=== PATIENT | female | born 1990 | race American Indian/Alaskan Native ===

== ENCOUNTER 2018-11-04 17:31 | Emergency (ER) | payer MEDICAID ==
[2018-11-04 18:09] VITALS: BP 125/65
[2018-11-04] MEDS ORDERED: ZITHROMAX PO ONE (18:10)
[2018-11-04] MEDS ORDERED: XYLOCAINE 1% MPF 5 mL INFILTRATI ONE (18:10)
[2018-11-04] MEDS ORDERED: ROCEPHIN IM ONE (18:10)
--- NOTE | 2018-11-04 18:10 | Emergency Department Report ---
Blank Doc - Documentation Documentation: 27 y o female present cc of getting treated for chlamydia states partner told her he has chlamydia. , states 7 weeks . PLAN: rochephin, azithromycin 1 g followed by [facility]
[2018-11-04] MEDS ORDERED: ZOFRAN ODT PO ONE (18:26)
--- NOTE | 2018-11-04 19:30 | Emergency Department Report ---
ED Female HPI - General Chief complaint: Urogenital-Female Stated complaint: STD CHECK Time Seen by Provider: 11/04/18 18:06 Source: patient Mode of arrival: Ambulatory Limitations: No Limitations - History of Present Illness Initial comments: 27 y o female present to emergency room and states partner told her he has chlamydia., states 7 weeks . She denies any vaginal discharge. She is here to be treated. Patient denies any back pain or abdominal pain. She denies any urinary frequency urgency or burning. Denies any nausea vomiting or diarrhea. Denies any vaginal bleeding. MD Complaint: possible STD Onset/Timin -: days(s) Severity scale (0 -10): 0 Are you Now?: Yes (7 weeks) Associated Symptoms: other (STD contact). denies: vaginal discharge, vaginal bleeding, abdominal pain, nausea/vomiting, fever/chills, headaches, loss of appetite, dysuria, hematuria, rash, seizure, shortness of breath, syncope, weakness - Related Data Sexually active: Yes Home Medications Medication Instructions Recorded Confirmed Last Taken No Known Home Medications [No 05/24/15 05/24/15 Unknown Reported Home Medications] Allergies Allergy/AdvReac Type Severity Reaction Status Date / Time No Known Allergies Allergy Verified 05/22/15 00:25 ED Review of Systems ROS: Stated complaint: STD CHECK Other details as noted in HPI Constitutional: denies: chills, malaise ENT: denies: throat pain Respiratory: denies: cough, shortness of breath, wheezing Cardiovascular: denies: chest pain, palpitations, edema, syncope Gastrointestinal: denies: abdominal pain, nausea, vomiting, diarrhea, constipation Genitourinary: other (reports exposure to chlamydia). denies: urgency, dysuria, frequency, hematuria, discharge, dyspareunia Musculoskeletal: denies: back pain, joint swelling, arthralgia, myalgia Skin: denies: rash Neurological: denies: headache ED Past Medical Hx - Past Medical History Previous Medical History?: No Hx Hypertension: No Hx Congestive Heart Failure: No Hx Diabetes: No Hx Deep Vein Thrombosis: No Hx Renal Disease: No Hx Sickle Cell Disease: No Hx Seizures: No Hx Asthma: No Hx COPD: No Hx HIV: No - Surgical History Past Surgical History?: No - Family History Family history: no significant - Social History Smoking Status: Never Smoker Substance Use Type: None - Medications Home Medications: Home Medications Medication Instructions Recorded Confirmed Last Taken Type No Known Home Medications [No 05/24/15 05/24/15 Unknown History Reported Home Medications] ED Physical Exam - General Limitations: No Limitations General appearance: alert, in no apparent distress - Head Head exam: Present: atraumatic, normocephalic, normal inspection - Eye Eye exam: Present: normal appearance, PERRL - ENT ENT exam: Present: normal exam, normal orophraynx, mucous membranes moist - Neck Neck exam: Present: normal inspection, full ROM. Absent: tenderness, lymphadenopathy - Respiratory Respiratory exam: Present: normal lung sounds bilaterally. Absent: respiratory distress, chest wall tenderness - Cardiovascular Cardiovascular Exam: Present: regular rate, normal rhythm, normal heart sounds - GI/Abdominal GI/Abdominal exam: Present: soft, normal bowel sounds. Absent: distended, tenderness, guarding, rebound, rigid, organomegaly, mass - Extremities Exam Extremities exam: Present: normal inspection, full ROM, normal capillary refill, other (No cce. + 2 pulses in all extremities, no neurovascular compromise). Absent: tenderness, pedal edema, joint swelling, calf tenderness - Back Exam Back exam: Present: normal inspection, full ROM. Absent: tenderness, CVA tenderness (R), CVA tenderness (L) - Neurological Exam Neurological exam: Present: alert, oriented X3, normal gait - Psychiatric Psychiatric exam: Present: normal affect, normal mood - Skin Skin exam: Present: warm, dry, intact, normal color. Absent: rash ED Course Vital Signs 11/04/18 18:06 Temperature 98.9 F Pulse Rate 100 H Respiratory 16 Rate Blood Pressure 125/65 O2 Sat by Pulse 100 Oximetry - Reevaluation(s) Reevaluation #1: 11/04/18 19:34 Patient was treated for gonorrhea and chlamydia in emergency room. Patient was given and Rocephin 250 mg IM and azithromycin 1 g by mouth. She had no adverse reaction from medication. ED Medical Decision Making - Medical Decision Making This is a 27-year-old female well-nourished well-developed here to be treated for STD because she said her boyfriend was diagnosed with chlamydia and she 7 weeks and need to be treated. Patient was treated with azithromycin and Rocephin in emergency room. I encouraged her to practice safe sex and not to have any sexual activity. I told her that she needs to follow up with her [employer]ES [facility]NAGER or at the health department for retesting in 7-10 days. And she voiced understanding. I discussed the patient if she has abdominal pain, vaginal bleeding, back pain or urinary symptoms, fever and or chills to return to the emergency room NIC otherwise follow up with her [employer]NA[employer] doctor. Critical care attestation.: If time is entered above; I have spent that time in minutes in the direct care of this critically ill patient, excluding procedure time. ED Disposition Clinical Impression: Exposure to sexually transmitted disease (STD), Sexually transmitted infection during in first trimester Disposition: DC- TO HOME OR SELFCARE Is pt being admited?: No Does the pt Need Aspirin: No Condition: Stable Instructions: Safe Sex (ED), Sexually Transmitted Diseases (ED), Chlamydia Infection (ED) Additional Instructions: Please follow up with the [employer] RETAIL SALES MANAGER in 3 days regard and exposure to chlamydia and let them know the year treated in emergency room and he will need to have follow-up STD test then in 7-10 days. If you have abdominal pain, vaginal bleeding, back pain, nausea vomiting, urinary burning, frequency urgency or fever and no chills please return to emergency room NIC Increasing her fluid intake to at least 2-3 L of water daily Avoid having sexual activity over the next 2 weeks and make sure that your partner have repeat STD check in 7-10 days to make sure he does not have any STD. You were treated for gonorrhea and chlamydia in the emergency room today. Referrals: [facility] [Provider Group] - 11/07/18 your ,[employer] [Other] - 11/07/18 Forms: Work/School Release Form(ED)
== END 2018-11-04 20:00 | disposition home or self-care (01) ==
LOC: ED 17:31
DX: O98.811 Other maternal infectious and parasitic diseases complicating pregnancy, first trimester (principal); A64 Unspecified sexually transmitted disease; Z3A.01 Less than 8 weeks gestation of pregnancy
CPT/HCPCS: 96372; 99282; J0696; Q0162

== ENCOUNTER 2019-12-09 20:44 | Emergency (ER) | payer MEDICAID ==
[2019-12-09 21:39] LABS: Hematocrit 44.2 % (30.3-42.9); Hemoglobin 14.5 gm/dl (10.1-14.3); Mean Corpuscular HGB Conc 33 % (30-34); Mean Corpuscular Volume 86 fl (79-97); Platelet Count 223 K/mm3 (140-440); Red Blood Count 5.14 M/mm3 (3.65-5.03)
[2019-12-09 21:58] LABS: Alanine Aminotransferase 14 units/L (7-56); Albumin 4.6 g/dL (3.9-5); BUN/Creatinine Ratio 17; Blood Urea Nitrogen 12 mg/dL (7-17); Hemolysis Index 2
[2019-12-09 22:01] LABS: Bilirubin,Direct < 0.2 mg/dL (0-0.2)
[2019-12-09 22:37] LABS: Platelet Estimate Consistent w Auto; RBC Morphology Normal; Total Cells Counted 100
[2019-12-10 00:09] LABS: Bacteria,Urine 1+ /HPF (Negative); Bilirubin,Urine NEG (Negative); Blood,Urine LG (Negative); Color,Urine Yellow (Yellow); Mucus,Urine 3+ /HPF; Urobilinogen,Urine < 2.0 mg/dL (<2.0)
[2019-12-10 00:14] LABS: RBC,Urine 0.1 /HPF (0.0-6.0)
[2019-12-10] MEDS ORDERED: DICYCLOMINE 20 MG TAB PO ONE (01:04)
[2019-12-10] MEDS ORDERED: ONDANSETRON 4 MG ODT TAB PO ONE (01:04)
[2019-12-10] MEDS ORDERED: FAMOTIDINE 20 MG TAB PO ONE (01:04)
--- NOTE | 2019-12-10 01:48 | Emergency Department Report ---
ED Abdominal Pain HPI - General Chief Complaint: Abdominal Pain Stated Complaint: ABD PAIN,DIARRHEA,SWEATS Time Seen by Provider: 12/09/19 21:14 Source: patient Mode of arrival: Ambulatory Limitations: No Limitations - History of Present Illness Initial Comments: Patient is a A0 29-year-old -[place] female with no past medical history who presents to the ED with acute onset persistent epigastric pain with nausea and lack of appetite and diffuse body aches for the last 3 days. Patient states that no one else at home is had similar symptoms. Patient denies dizziness, fever, chills, vomiting, dysuria, urinary frequency and urgency, vagi nal discharge, vaginal bleeding, syncope, chest pain, shortness of breath, sore throat or nasal and sinus congestion and headache. MD Complaint: abdominal pain, other (nausea) -: Sudden, days(s) (3) Location: epigastric Radiation: none Migration to: no migration Severity: moderate Severity scale (0 -10): 4 Quality: cramping, aching Consistency: intermittent Improves With: nothing Worsens With: nothing Context: possible food poisoning Associated Symptoms: denies other symptoms, nausea, anorexia. denies: vomiting, diarrhea, fever, chills, dysuria, hematemesis, hematochezia, melena, hematuria, syncope - Related Data LMP Date: 12/08/19 Previous Rx's Medication Instructions Recorded Last Taken Type Ferrous Sulfate [Feosol 325 MG tab] 325 mg PO QDAY #30 tablet 06/19/19 Unknown Rx Dicyclomine [Bentyl] 20 mg PO Q6H PRN #30 tablet 12/10/19 Unknown Rx Famotidine [Pepcid] 20 mg PO Q12H #30 tablet 12/10/19 Unknown Rx Ondansetron [Zofran Odt] 4 mg PO Q6HR PRN #20 tab.rapdis 12/10/19 Unknown Rx Allergies Allergy/AdvReac Type Severity Reaction Status Date / Time No Known Allergies Allergy Verified 05/22/15 00:25 ED Review of Systems ROS: Stated complaint: ABD PAIN,DIARRHEA,SWEATS Other details as noted in HPI Constitutional: denies: chills, fever Eyes: denies: eye pain, eye discharge, vision change ENT: denies: ear pain, throat pain Respiratory: denies: cough, shortness of breath, wheezing Cardiovascular: denies: chest pain, palpitations Endocrine: no symptoms reported Gastrointestinal: abdominal pain, nausea, diarrhea Genitourinary: denies: urgency, dysuria, discharge Musculoskeletal: denies: back pain, joint swelling, arthralgia Skin: denies: rash, lesions Neurological: denies: headache, weakness, paresthesias Psychiatric: denies: anxiety, depression Hematological/Lymphatic: denies: easy bleeding, easy bruising ED Past Medical Hx - Past Medical History Previous Medical History?: Yes Hx Hypertension: No Hx Congestive Heart Failure: No Hx Diabetes: No Hx Deep Vein Thrombosis: No Hx Renal Disease: No Hx Sickle Cell Disease: No Hx Seizures: No Hx Asthma: No Hx COPD: No Hx HIV: No Additional medical history: Irregular heart beat. - Surgical History Past Surgical History?: No - Social History Smoking Status: Never Smoker Substance Use Type: None - Medications Home Medications: Home Medications Medication Instructions Recorded Confirmed Last Taken Type Ferrous Sulfate [Feosol 325 MG tab] 325 mg PO QDAY #30 tablet 06/19/19 Unknown Rx Dicyclomine [Bentyl] 20 mg PO Q6H PRN #30 tablet 12/10/19 Unknown Rx Famotidine [Pepcid] 20 mg PO Q12H #30 tablet 12/10/19 Unknown Rx Ondansetron [Zofran Odt] 4 mg PO Q6HR PRN #20 tab.rapdis 12/10/19 Unknown Rx ED Physical Exam - General Limitations: No Limitations General appearance: alert, in no apparent distress - Head Head exam: Present: atraumatic, normocephalic, normal inspection - Eye Eye exam: Present: normal appearance, PERRL, EOMI Pupils: Present: normal accommodation - ENT ENT exam: Present: normal exam, normal orophraynx, mucous membranes moist, TM's normal bilaterally, normal external ear exam - Neck Neck exam: Present: normal inspection, full ROM - Respiratory Respiratory exam: Present: normal lung sounds bilaterally. Absent: respiratory distress, wheezes, rales, chest wall tenderness, accessory muscle use, decreased breath sounds - Cardiovascular Cardiovascular Exam: Present: regular rate, normal rhythm, normal heart sounds. Absent: systolic murmur, diastolic murmur, rubs, gallop - GI/Abdominal GI/Abdominal exam: Present: soft, tenderness (Mild epigastric tenderness), normal bowel sounds. Absent: guarding, rebound, hyperactive bowel sounds - Extremities Exam Extremities exam: Present: normal inspection, full ROM, normal capillary refill - Back Exam Back exam: Present: normal inspection, full ROM. Absent: tenderness, CVA tenderness (L), muscle spasm, paraspinal tenderness - Neurological Exam Neurological exam: Present: alert, oriented X3, CN II-XII intact, normal gait, reflexes normal - Psychiatric Psychiatric exam: Present: normal affect, normal mood - Skin Skin exam: Present: warm, dry, intact, normal color. Absent: rash ED Course Vital Signs 12/09/19 12/09/19 21:01 21:13 Temperature 98.2 F 98.2 F Pulse Rate 91 H 85 Respiratory 18 18 Rate Blood Pressure 118/79 118/79 O2 Sat by Pulse 98 100 Oximetry ED Medical Decision Making - Lab Data Result diagrams: 12/09/19 21:18 12/09/19 21:18 - Medical Decision Making This is a 29-year-old female who presented to the ED with persistent epigastric pain, nausea and diarrhea with diffuse body aches and pains. In the ED, patient is alert and oriented x3 and is not in any distress with normal vital signs. Lab test results were reviewed and are all nonactionable including urinalysis. Patient was treated in the ED with antacids, antiemetics and pain medications. On reevaluation, patient's pain is well controlled with medications. Patient was discharged home on medications and advised to follow-up with her primary care physician in 5 to 7 days for reevaluation or return to the ED immediately if symptoms get worse. - Differential Diagnosis Gastritis; GERD; Viral gastroenteritis; UTI Critical care attestation.: If time is entered above; I have spent that time in minutes in the direct care of this critically ill patient, excluding procedure time. ED Disposition Clinical Impression: Viral gastroenteritis, Epigastric abdominal pain, Nausea and vomiting in adult GERD (gastroesophageal reflux disease) Qualifiers: Esophagitis presence: without esophagitis Qualified Code(s): K21.9 - Gastro- esophageal reflux disease without esophagitis Disposition: TO HOME OR SELFCARE Is pt being admited?: No Does the pt Need Aspirin: No Condition: Stable Instructions: Abdominal Pain (ED), Gastroesophageal Reflux Disease (ED), Acute Nausea and Vomiting (ED), Gastroenteritis (ED) Additional Instructions: Take medication as advised, drink plenty of fluids and follow-up with your primary care physician in 5 to 7 days for reevaluation. Return to the ED immediately if symptoms get worse. Prescriptions: Dicyclomine [Bentyl] 20 mg PO Q6H PRN #30 tablet PRN Reason: Pain , Severe (7-10) Famotidine [Pepcid] 20 mg PO Q12H #30 tablet Ondansetron [Zofran Odt] 4 mg PO Q6HR PRN #20 tab.rapdis PRN Reason: Nausea Referrals: [facility] [place] [Outside] - 3-5 Days Forms: Work/School Release Form(ED) Time of Disposition: 01:49 Print Language: PUERTO RICAN
[2019-12-10 01:58] VITALS: BP 116/83
== END 2019-12-10 01:58 | disposition home or self-care (01) ==
LOC: ED 20:44
DX: A08.4 Viral intestinal infection, unspecified (principal); K21.9 Gastro-esophageal reflux disease without esophagitis; R11.2 Nausea with vomiting, unspecified; R10.13 Epigastric pain; Z79.899 Other long term (current) drug therapy
CPT/HCPCS: 36415; 80048; 80076; 81001; 83690; 85007; 85025; 99283; Q0162

== ENCOUNTER 2021-04-23 03:46 | Observation (INO) | payer MEDICAID ==
--- NOTE | 2021-04-23 05:25 | Ultrasound Report ---
ULTRASOUND OBSTETRIC LIMITED ULTRASOUND BIOPHYSICAL PROFILE INDICATION / CLINICAL INFORMATION: BPP. COMPARISON: None available. FINDINGS: BREATHING MOVEMENT = 2 GROSS BODY MOVEMENT = 2 TONE = 2 QUALITATIVE AMNIOTIC FLUID VOLUME = 2 TOTAL BIOPHYSICAL SCORE = 8/8 AMNIOTIC FLUID INDEX (cm) = 11.0 PRESENTATION: Cephalic. HEART RATE (beats per minute): 143 ADDITIONAL FINDINGS: None. IMPRESSION: 1. Biophysical Score = 8/8 Signer Name: Darrell Perales MD Signed: 04/23/2021 5:20 AM Workstation Name: [id number]
[2021-04-23] MEDS ORDERED: LACTATED RINGERS 1,000 ML IV ONE (05:31)
[2021-04-23] MEDS ORDERED: CARBOPROST TROMETHAMINE 250 MCG/1 ML INJ IM PRN (06:20)
[2021-04-23] MEDS ORDERED: LOPERAMIDE 2 MG CAP PO PRN (06:20)
[2021-04-23] MEDS ORDERED: BUTORPHANOL 2 MG/1 ML INJ IV PRN ×2 (06:20)
[2021-04-23] MEDS ORDERED: METHYLERGONOVINE MALEATE 0.2 MG/ML VIAL IM PRN (06:20)
[2021-04-23] MEDS ORDERED: OXYTOCIN 10 UNIT/1 ML INJ IM PRN (06:20)
[2021-04-23] MEDS ORDERED: TERBUTALINE 1 MG/1 ML INJ SUB-Q PRN (06:20)
[2021-04-23] MEDS ORDERED: MINERAL OIL 30 ML ORAL LIQD PO PRN (06:20)
[2021-04-23] MEDS ORDERED: AMPICILLIN/NS 2 GM/100 ML 2 GM/100 ML BAG IV ONE (06:20)
[2021-04-23] MEDS ORDERED: miSOPROStol 200 MCG TAB PR PRN (06:20)
[2021-04-23] MEDS ORDERED: LIDOCAINE (2%) 20 MG/1 ML VIAL 20 ML MDV INFILTRATI ONE (06:20)
[2021-04-23] MEDS ORDERED: ePHEDrine SULFATE 50 MG/1 ML INJ IV PRN (06:20)
[2021-04-23] MEDS ORDERED: LACTATED RINGERS 1,000 ML IV SCH (06:30)
[2021-04-23 06:50] LABS: Basophils # (Auto) 0.1 K/mm3 (0.0-0.1); Basophils % (Auto) 0.6 % (0.0-1.8); Eosinophils # (Auto) 0.1 K/mm3 (0.0-0.4); Eosinophils % (Auto) 1.2 % (0.0-4.3); Hematocrit 35.6 % (30.3-42.9); Hemoglobin 11.8 gm/dl (10.1-14.3); Lymphocytes # (Auto) 1.8 K/mm3 (1.2-5.4); Lymphocytes % (Auto) 18.7 % (13.4-35.0); Mean Corpuscular HGB Conc 33 % (30-34); Mean Corpuscular Volume 87 fl (79-97); Monocytes # (Auto) 1.3 K/mm3 (0.0-0.8); Monocytes % (Auto) 13.4 % (0.0-7.3); Platelet Count 183 K/mm3 (140-440); Red Blood Count 4.08 M/mm3 (3.65-5.03); Red Cell Distribution Width 14.6 % (13.2-15.2)
[2021-04-23] MEDS ORDERED: OXYTOCIN DRIP 30 UNITS/500 ML BAG IV SCH ×2 (07:00)
[2021-04-23 09:02] VITALS: BP 132/61
== END 2021-04-23 10:30 | disposition home or self-care (01) ==
LOC: TRG 03:46 → APU 03:54 → TRG 05:30 → LD 05:30
DX: O62.9 Abnormality of forces of labor, unspecified (principal); Z3A.38 38 weeks gestation of pregnancy
CPT/HCPCS: 36415; 59025; 76819; 85025; 86592; 86850; 86900; 86901; 96365; G0378; J0290; J7120; 96360

== ENCOUNTER 2021-04-29 05:58 | Inpatient (IN) | payer MEDICAID ==
[2021-04-29] MEDS ORDERED: METHYLERGONOVINE MALEATE 0.2 MG/ML VIAL IM PRN (06:57)
[2021-04-29] MEDS ORDERED: OXYTOCIN 10 UNIT/1 ML INJ IM PRN (06:57)
[2021-04-29] MEDS ORDERED: LIDOCAINE (2%) 20 MG/1 ML VIAL 20 ML MDV INFILTRATI NR (06:57)
[2021-04-29] MEDS ORDERED: LOPERAMIDE 2 MG CAP PO PRN (06:57)
[2021-04-29] MEDS ORDERED: miSOPROStol 200 MCG TAB PR PRN (06:57)
[2021-04-29] MEDS ORDERED: AMPICILLIN/NS 2 GM/100 ML 2 GM/100 ML BAG IV ONE (06:57)
[2021-04-29] MEDS ORDERED: CARBOPROST TROMETHAMINE 250 MCG/1 ML INJ IM PRN (06:57)
[2021-04-29] MEDS ORDERED: ePHEDrine SULFATE 50 MG/1 ML INJ IV PRN ×2 (07:00→11:30)
[2021-04-29] MEDS ORDERED: TERBUTALINE 1 MG/1 ML INJ SUB-Q PRN (07:00)
[2021-04-29] MEDS ORDERED: NalbUPHINE 10 MG/1 ML INJ IV PRN (07:00)
[2021-04-29] MEDS ORDERED: OXYTOCIN DRIP 30 UNITS/500 ML BAG IV SCH ×3 (07:00→22:00)
[2021-04-29] MEDS ORDERED: fentaNYL 100 MCG/2 ML INJ IV PRN (07:00)
[2021-04-29] MEDS ORDERED: ACETAMINOPHEN 325 MG TAB PO PRN (07:00)
--- NOTE | 2021-04-29 07:22 | History and Physical Report ---
History of Present Illness Date of examination: 04/29/21 Date of admission: 04/29/21 Chief complaint: Leakage of fluid History of present illness: at 39.4wks by EDC 05/02/21 per pt report. Pt c/o [facility] at 4am today, denies vaginal bleeding or headache. pt admits to movement. care at [facility] and records not available however pt states she knows she was GBS+ and needs abx med. Pt also desires epidural. Past History Past Medical History: no pertinent history Past Surgical History: no surgical history LOAN REPRESENTATIVE History: herpes (no active lesions and last med for valtrex taken 04/28/21) Family/Genetic History: none Social history: no significant social history - Obstetrical History Expected Date of Delivery: 05/02/21 Actual Gestation: 39 Week(s) 4 Day(s) : 5 Hx # Term Pregnancies: 4 Number of Living Children: 4 Medications and Allergies Allergies Allergy/AdvReac Type Severity Reaction Status Date / Time No Known Allergies Allergy Verified 05/22/15 00:25 Home Medications Medication Instructions Recorded Confirmed Last Taken Type One Daily Tablet 1 tab PO DAILY 04/23/21 04/23/21 04/22/21 History Valtrex 1,000 mg PO DAILY 04/23/21 04/23/21 04/22/21 10:00 History Active Meds: Active Medications Acetaminophen (Acetaminophen 325 Mg Tab) 650 mg PO Q4H PRN PRN Reason: Pain, Mild (1-3) Carboprost Tromethamine (Carboprost Tromethamine 250 Mcg/1 Ml Inj) 250 mcg IM ONCE PRN PRN Reason: Uterine Bleeding Ephedrine Sulfate (Ephedrine Sulfate 50 Mg/1 Ml Inj) 10 mg IV Q2M PRN PRN Reason: Hypotension Fentanyl (Fentanyl 100 Mcg/2 Ml Inj) 100 mcg IV Q2H PRN PRN Reason: Pain,Severe (7-10) LABOR PAIN Oxytocin/Sodium Chloride (Pitocin/Ns 30 Unit/500ml) 30 units in 500 mls @ 2 mls/hr IV TITR ANNEMARIE; Protocol Lactated Ringer's (Lactated Ringers) 1,000 mls @ 125 mls/hr IV DIRECT ANNEMARIE Oxytocin/Sodium Chloride (Pitocin/Ns 30 Unit/500ml) 30 units in 500 mls @ 40 mls/hr IV TITR ANNEMARIE; Protocol Ampicillin Sodium (Ampicillin/Ns 2 Gm/100 Ml) 2 gm in 100 mls @ 100 mls/hr IV ONCE ONE; Protocol Stop: 04/29/21 07:56 Lidocaine (Lidocaine (2%) 20 Mg/1 Ml Vial 20 Ml Mdv) 20 ml INFILTRATI ONCE ONE Stop: 04/29/21 06:58 Loperamide HCl (Loperamide 2 Mg Cap) 2 mg PO ONCE PRN PRN Reason: give with Hemabate Methylergonovine Maleate (Methylergonovine Maleate 0.2 Mg/Ml Vial) 0.2 mg IM ONCE PRN PRN Reason: Uterine Bleeding Mineral Oil (Mineral Oil 30 Ml Oral Liqd) 30 ml PO QHS PRN PRN Reason: Constipation Misoprostol (Misoprostol 200 Mcg Tab) 800 mcg CA ONCE PRN PRN Reason: Uterine Bleeding Nalbuphine HCl (Nalbuphine 10 Mg/1 Ml Inj) 10 mg IV Q2H PRN PRN Reason: Pain, Moderate (4-6) Oxytocin (Oxytocin 10 Unit/1 Ml Inj) 10 unit IM ONCE PRN PRN Reason: Uterine Bleeding Terbutaline Sulfate (Terbutaline 1 Mg/1 Ml Inj) 0.25 mg SUB-Q ONCE PRN PRN Reason: Hyperstimulation/Hypertonicity Review of Systems All systems: negative (leakage of fluid) - Vital Signs Vital signs: Vital Signs Pulse BP 88 133/72 04/29/21 06:23 04/29/21 06:23 Temp Pulse Resp BP Pulse Ox 98.7 F 94 H 18 133/72 96 04/29/21 06:24 04/29/21 07:14 04/29/21 06:24 04/29/21 06:24 04/29/21 07:14 - Physical Exam Breasts: Positive: deferred Cardiovascular: Regular rate Lungs: Positive: Normal air movement Abdomen: Positive: normal appearance Genitourinary (Female): Positive: normal external genitalia Vulva: both: normal (no lesions) Vagina: Positive: normal moisture Uterus: Positive: normal size - Obstetrical Cervical Dilatation: 3 Cervical Effacement Percentage: 50 station: -3 Uterine Contraction Pattern: Irregular Results All other labs normal. Assessment and Plan Term with PROM, GBS+ per pt report and grossly ruptured 1. admit to labor and delivery and give Amp for GBS+ 2. augment with pitocin 3. May have epidural when desired Expect
[2021-04-29 08:04] LABS: Hematocrit 35.4 % (30.3-42.9); Mean Corpuscular HGB Conc 34 % (30-34); Mean Corpuscular Volume 87 fl (79-97); Platelet Count 166 K/mm3 (140-440); Red Blood Count 4.09 M/mm3 (3.65-5.03)
[2021-04-29] MEDS: valACYclovir 500 MG TAB PO SCH (08:15)
[2021-04-29] MEDS: LACTATED RINGERS 1,000 ML IV SCH ×3 (08:32→11:10)
--- NOTE | 2021-04-29 09:45 | Progress Note ---
Assessment and Plan A: IUP@ 39.4wks + GBS + HSV P: Continue monitoring Start Pitocin augmentation GBS protocal Epidural/pain med as desired Anticipate Subjective - Subjective Date of service: 04/29/21 Principal diagnosis: IUP@ 39.4wks with PROM Patient reports: movement normal Objective - Vital Signs Vital Signs: Vital Signs - 12hr 04/29/21 04/29/21 04/29/21 06:23 06:24 06:29 Temperature 98.7 F Pulse Rate 88 99 H 98 H Respiratory 18 Rate Blood Pressure 133/72 Blood Pressure 133/72 [Right] O2 Sat by Pulse 97 97 Oximetry O2 Sat by Pulse Oximetry [ Bilateral Throughout] 04/29/21 04/29/21 04/29/21 06:34 06:37 06:39 Temperature Pulse Rate 90 114 H 84 Respiratory Rate Blood Pressure Blood Pressure [Right] O2 Sat by Pulse 96 91 97 Oximetry O2 Sat by Pulse Oximetry [ Bilateral Throughout] 04/29/21 04/29/21 04/29/21 06:44 06:49 06:54 Temperature Pulse Rate 86 91 H 92 H Respiratory Rate Blood Pressure Blood Pressure [Right] O2 Sat by Pulse 96 97 97 Oximetry O2 Sat by Pulse Oximetry [ Bilateral Throughout] 04/29/21 04/29/21 04/29/21 06:59 07:04 07:09 Temperature Pulse Rate 91 H 101 H 94 H Respiratory Rate Blood Pressure Blood Pressure [Right] O2 Sat by Pulse 97 95 97 Oximetry O2 Sat by Pulse Oximetry [ Bilateral Throughout] 04/29/21 04/29/21 04/29/21 07:14 07:24 07:27 Temperature Pulse Rate 94 H 87 92 H Respiratory Rate Blood Pressure 127/66 Blood Pressure [Right] O2 Sat by Pulse 96 97 Oximetry O2 Sat by Pulse Oximetry [ Bilateral Throughout] 04/29/21 04/29/21 04/29/21 07:32 07:37 07:42 Temperature Pulse Rate 91 H 91 H 91 H Respiratory Rate Blood Pressure Blood Pressure [Right] O2 Sat by Pulse 96 97 96 Oximetry O2 Sat by Pulse Oximetry [ Bilateral Throughout] 04/29/21 04/29/21 04/29/21 07:43 07:47 07:52 Temperature Pulse Rate 92 H 95 H 84 Respiratory Rate Blood Pressure Blood Pressure [Right] O2 Sat by Pulse 94 96 96 Oximetry O2 Sat by Pulse Oximetry [ Bilateral Throughout] 04/29/21 04/29/21 04/29/21 07:53 07:57 08:02 Temperature Pulse Rate 89 90 97 H Respiratory Rate Blood Pressure Blood Pressure [Right] O2 Sat by Pulse 94 95 95 Oximetry O2 Sat by Pulse Oximetry [ Bilateral Throughout] 04/29/21 04/29/21 04/29/21 08:07 08:12 08:17 Temperature Pulse Rate 91 H 89 107 H Respiratory Rate Blood Pressure Blood Pressure [Right] O2 Sat by Pulse 96 95 95 Oximetry O2 Sat by Pulse Oximetry [ Bilateral Throughout] 04/29/21 04/29/21 04/29/21 08:22 08:26 08:27 Temperature Pulse Rate 88 86 83 Respiratory Rate Blood Pressure Blood Pressure [Right] O2 Sat by Pulse 96 93 96 Oximetry O2 Sat by Pulse Oximetry [ Bilateral Throughout] 04/29/21 04/29/21 04/29/21 08:32 08:37 08:39 Temperature 98.2 F Pulse Rate 87 100 H Respiratory 20 Rate Blood Pressure Blood Pressure [Right] O2 Sat by Pulse 96 97 Oximetry O2 Sat by Pulse 96 Oximetry [ Bilateral Throughout] 04/29/21 04/29/21 04/29/21 08:42 08:47 08:51 Temperature Pulse Rate 92 H 81 90 Respiratory Rate Blood Pressure Blood Pressure [Right] O2 Sat by Pulse 97 97 93 Oximetry O2 Sat by Pulse Oximetry [ Bilateral Throughout] 04/29/21 04/29/21 04/29/21 08:52 08:57 09:02 Temperature Pulse Rate 88 99 H 85 Respiratory Rate Blood Pressure Blood Pressure [Right] O2 Sat by Pulse 97 97 97 Oximetry O2 Sat by Pulse Oximetry [ Bilateral Throughout] 04/29/21 04/29/21 04/29/21 09:07 09:12 09:13 Temperature Pulse Rate 85 85 88 Respiratory Rate Blood Pressure Blood Pressure [Right] O2 Sat by Pulse 96 95 94 Oximetry O2 Sat by Pulse Oximetry [ Bilateral Throughout] 04/29/21 04/29/21 04/29/21 09:17 09:21 09:22 Temperature Pulse Rate 82 81 79 Respiratory Rate Blood Pressure Blood Pressure [Right] O2 Sat by Pulse 96 94 93 Oximetry O2 Sat by Pulse Oximetry [ Bilateral Throughout] 04/29/21 04/29/21 04/29/21 09:26 09:27 09:32 Temperature Pulse Rate 84 101 H 86 Respiratory Rate Blood Pressure Blood Pressure [Right] O2 Sat by Pulse 94 96 94 Oximetry O2 Sat by Pulse Oximetry [ Bilateral Throughout] 04/29/21 04/29/21 04/29/21 09:37 09:42 09:43 Temperature Pulse Rate 86 86 88 Respiratory Rate Blood Pressure Blood Pressure [Right] O2 Sat by Pulse 94 95 94 Oximetry O2 Sat by Pulse Oximetry [ Bilateral Throughout] - Exam Breasts: deferred Abdomen: Present: normal appearance, soft, normal bowel sounds Vulva: both: normal Uterus: Present: normal FHR: auscultation normal, category 1 Uterine Contraction Monitor Mode: External Uterine Contraction Pattern: Irregular Uterine Tone Measurement Phase: Resting Uterine Contraction Intensity: Mild Extremities: normal - Labs Labs: Laboratory Results - last 24 hr 04/29/21 08:00 WBC 7.9 RBC 4.09 Hgb 12.0 Hct 35.4 MCV 87 MCH 29 MCHC 34 RDW 15.0 Plt Count 166
[2021-04-29] MEDS ORDERED: NALOXONE 2 MG/2 ML INJ IV PRN (11:30)
[2021-04-29] MEDS ORDERED: fentaNYL-BUPIV 2 MCG/ML-0.125% 200 MCG/100 ML BAG EPIDURAL SCH (12:00)
[2021-04-29] MEDS ORDERED: AMPICILLIN/NS 1 GM/50 ML 1 GM/50 ML BAG IV ONE (12:16)
--- NOTE | 2021-04-29 13:10 | Anesthesia Consultation ---
Anesthesia Consult and Med Hx Date of service: 04/29/21 - Airway Anesthetic Teeth Evaluation: Good ROM Head & Neck: Adequate Mental/Hyoid Distance: Adequate Mallampati Class: Class II Intubation Access Assessment: Probably Good - Pulmonary Exam CTA: Yes - Cardiac Exam Cardiac Exam: RRR - Pre-Operative Health Status ASA Pre-Surgery Classification: ASA2 Proposed Anesthetic Plan: Epidural - Pulmonary Hx Smoking: No Hx Asthma: No Hx Respiratory Symptoms: No SOB: No COPD: No Home Oxygen Therapy: No Hx Pneumonia: No Hx Sleep Apnea: No - Cardiovascular System Hx Hypertension: No Hx Coronary Artery Disease: No Hx Heart Attack/AMI: No Hx Angina: No Hx Percutaneous Transluminal Coronary Angioplasty (PTCA): No Hx Cardia Arrhythmia: No Hx Pacemaker: No Hx Internal Defibrillator: No Hx Valvular Heart Disease: No Hx Heart Murmur: No Hx Peripheral Vascular Disease: No - Central Nervous System Hx Neuromuscular Disorder: No Hx Seizures: No CVA: No Hx Back Pain: Yes Hx Psychiatric Problems: No - Gastrointestinal Hx Ulcer: No Hx Gastroesophageal Reflux Disease: Yes - Endocrine Hx Renal Disease: No Hx End Stage Renal Disease: No Hx Cirrhosis: No Hx Liver Disease: No Hx Insulin Dependent Diabetes: No Hx Non-Insulin Dependent Diabetes: No Hx Thyroid Disease: No Hx Hypothyroidism: Yes Hx Hyperthyroidism: No - Hematic Hx Anemia: No Hx Sickle Cell Disease: No - Other Systems Hx Alcohol Use: No Hx Substance Use: No Hx Cancer: No Hx Obesity: Yes
--- NOTE | 2021-04-29 13:16 | Progress Note ---
Labor Epidural - Labor Epidural Start Time: 10:53 Stop Time: 11:03 Performed by:: DWAYNE PERALTA Procedure: Patient is requesting a laboring epidural for laboring pain. Patient IDed, H&P reviewed, all questions and concerns were answered, and consent was signed. Timeout was performed at bedside. Patient in sitting position. Sterile prep and drape was performed. [3] ml of 1% lidocaine skin wheal at L[3]- L [4]. 18- gauge Delphine epidural needle was advanced to loss of resistance with saline technique 6cm. Negative CSF negative blood. Epidural catheter advanced to [10] centimeters. [NEGATIVE] Aspiration [NEGATIVE] test dose. Sterile dressing applied. Patient tolerated procedure.
[2021-04-29] MEDS ORDERED: AMPICILLIN/NS 1 GM/50 ML 1 GM/50 ML BAG IV SCH (17:00)
--- NOTE | 2021-04-29 17:48 | Progress Note ---
Assessment and Plan Patient has a failure of descent and failure of dilatation of the cervix. This problem continues she will have to have a section. We suspect that this baby is large for gestational age and will probably be getting her biggest baby in the past. - Patient Problems (1) LGA (large for gestational age) fetus Current Visit: Yes Status: Acute Plan to address problem: We'll try to get this patient to deliver vaginally. However if she does not dilate any further and that it does not descend any further she would need to pena ve a section. Subjective Date of service: 04/29/21 Principal diagnosis: IUP@ 39.4wks with PROM Interval history: 30-year-old multipara in labor augmented with Pitocin and epidural anesthesia. Patient has had her biggest baby weight 8 pounds 13 ounces. Her pelvic examination is consistent with the cervix of 4 cm vertex bag of flores ruptured at best -5 station cervix interface. I discussed with the patient and about the problem with persistent with the vaginal delivery at this time. It is my recommendation that the patient proceed with section. Patient needs to have 2 hours before she decides to have a section. I disagree with the patient and her spouse about this problem however I will go along with them and see what happens in 2 and half hours. And if her cervix has not changed significantly in the vertex is not distended and currently we'll proceed with a section. Objective - Constitutional Vitals: Vital Signs - 12hr 04/29/21 04/29/21 04/29/21 06:23 06:24 06:29 Temperature 98.7 F Pulse Rate 88 99 H 98 H Respiratory 18 Rate Blood Pressure 133/72 Blood Pressure 133/72 [Right] O2 Sat by Pulse 97 97 Oximetry O2 Sat by Pulse Oximetry [ Bilateral Throughout] 04/29/21 04/29/21 04/29/21 06:34 06:37 06:39 Temperature Pulse Rate 90 114 H 84 Respiratory Rate Blood Pressure Blood Pressure [Right] O2 Sat by Pulse 96 91 97 Oximetry O2 Sat by Pulse Oximetry [ Bilateral Throughout] 04/29/21 04/29/21 04/29/21 06:44 06:49 06:54 Temperature Pulse Rate 86 91 H 92 H Respiratory Rate Blood Pressure Blood Pressure [Right] O2 Sat by Pulse 96 97 97 Oximetry O2 Sat by Pulse Oximetry [ Bilateral Throughout] 04/29/21 04/29/21 04/29/21 06:59 07:04 07:09 Temperature Pulse Rate 91 H 101 H 94 H Respiratory Rate Blood Pressure Blood Pressure [Right] O2 Sat by Pulse 97 95 97 Oximetry O2 Sat by Pulse Oximetry [ Bilateral Throughout] 04/29/21 04/29/21 04/29/21 07:14 07:24 07:27 Temperature Pulse Rate 94 H 87 92 H Respiratory Rate Blood Pressure 127/66 Blood Pressure [Right] O2 Sat by Pulse 96 97 Oximetry O2 Sat by Pulse Oximetry [ Bilateral Throughout] 04/29/21 04/29/21 04/29/21 07:32 07:37 07:42 Temperature Pulse Rate 91 H 91 H 91 H Respiratory Rate Blood Pressure Blood Pressure [Right] O2 Sat by Pulse 96 97 96 Oximetry O2 Sat by Pulse Oximetry [ Bilateral Throughout] 04/29/21 04/29/21 04/29/21 07:43 07:47 07:52 Temperature Pulse Rate 92 H 95 H 84 Respiratory Rate Blood Pressure Blood Pressure [Right] O2 Sat by Pulse 94 96 96 Oximetry O2 Sat by Pulse Oximetry [ Bilateral Throughout] 04/29/21 04/29/21 04/29/21 07:53 07:57 08:02 Temperature Pulse Rate 89 90 97 H Respiratory Rate Blood Pressure Blood Pressure [Right] O2 Sat by Pulse 94 95 95 Oximetry O2 Sat by Pulse Oximetry [ Bilateral Throughout] 04/29/21 04/29/21 04/29/21 08:07 08:12 08:17 Temperature Pulse Rate 91 H 89 107 H Respiratory Rate Blood Pressure Blood Pressure [Right] O2 Sat by Pulse 96 95 95 Oximetry O2 Sat by Pulse Oximetry [ Bilateral Throughout] 04/29/21 04/29/21 04/29/21 08:22 08:26 08:27 Temperature Pulse Rate 88 86 83 Respiratory Rate Blood Pressure Blood Pressure [Right] O2 Sat by Pulse 96 93 96 Oximetry O2 Sat by Pulse Oximetry [ Bilateral Throughout] 04/29/21 04/29/21 04/29/21 08:32 08:37 08:39 Temperature 98.2 F Pulse Rate 87 100 H Respiratory 20 Rate Blood Pressure Blood Pressure [Right] O2 Sat by Pulse 96 97 Oximetry O2 Sat by Pulse 96 Oximetry [ Bilateral Throughout] 04/29/21 04/29/21 04/29/21 08:42 08:47 08:51 Temperature Pulse Rate 92 H 81 90 Respiratory Rate Blood Pressure Blood Pressure [Right] O2 Sat by Pulse 97 97 93 Oximetry O2 Sat by Pulse Oximetry [ Bilateral Throughout] 04/29/21 04/29/21 04/29/21 08:52 08:57 09:02 Temperature Pulse Rate 88 99 H 85 Respiratory Rate Blood Pressure Blood Pressure [Right] O2 Sat by Pulse 97 97 97 Oximetry O2 Sat by Pulse Oximetry [ Bilateral Throughout] 04/29/21 04/29/21 04/29/21 09:07 09:12 09:13 Temperature Pulse Rate 85 85 88 Respiratory Rate Blood Pressure Blood Pressure [Right] O2 Sat by Pulse 96 95 94 Oximetry O2 Sat by Pulse Oximetry [ Bilateral Throughout] 04/29/21 04/29/21 04/29/21 09:17 09:21 09:22 Temperature Pulse Rate 82 81 79 Respiratory Rate Blood Pressure Blood Pressure [Right] O2 Sat by Pulse 96 94 93 Oximetry O2 Sat by Pulse Oximetry [ Bilateral Throughout] 04/29/21 04/29/21 04/29/21 09:26 09:27 09:32 Temperature Pulse Rate 84 101 H 86 Respiratory Rate Blood Pressure Blood Pressure [Right] O2 Sat by Pulse 94 96 94 Oximetry O2 Sat by Pulse Oximetry [ Bilateral Throughout] 04/29/21 04/29/21 04/29/21 09:37 09:42 09:43 Temperature Pulse Rate 86 86 88 Respiratory Rate Blood Pressure Blood Pressure [Right] O2 Sat by Pulse 94 95 94 Oximetry O2 Sat by Pulse Oximetry [ Bilateral Throughout] 04/29/21 04/29/21 04/29/21 09:47 09:52 09:55 Temperature Pulse Rate 93 H 87 89 Respiratory Rate Blood Pressure 123/58 Blood Pressure [Right] O2 Sat by Pulse 93 96 94 Oximetry O2 Sat by Pulse Oximetry [ Bilateral Throughout] 04/29/21 04/29/21 04/29/21 09:57 10:02 10:04 Temperature Pulse Rate 87 80 83 Respiratory Rate Blood Pressure Blood Pressure [Right] O2 Sat by Pulse 95 94 94 Oximetry O2 Sat by Pulse Oximetry [ Bilateral Throughout] 04/29/21 04/29/21 04/29/21 10:07 10:11 10:12 Temperature Pulse Rate 83 84 84 Respiratory Rate Blood Pressure 110/57 Blood Pressure [Right] O2 Sat by Pulse 93 93 Oximetry O2 Sat by Pulse Oximetry [ Bilateral Throughout] 04/29/21 04/29/21 04/29/21 10:16 10:17 10:22 Temperature Pulse Rate 81 93 H 83 Respiratory Rate Blood Pressure Blood Pressure [Right] O2 Sat by Pulse 94 94 93 Oximetry O2 Sat by Pulse Oximetry [ Bilateral Throughout] 04/29/21 04/29/21 04/29/21 10:25 10:26 10:27 Temperature Pulse Rate 86 83 84 Respiratory Rate Blood Pressure 115/60 Blood Pressure [Right] O2 Sat by Pulse 94 95 Oximetry O2 Sat by Pulse Oximetry [ Bilateral Throughout] 04/29/21 04/29/21 04/29/21 10:30 10:32 10:37 Temperature Pulse Rate 89 98 H 87 Respiratory Rate Blood Pressure Blood Pressure [Right] O2 Sat by Pulse 94 95 94 Oximetry O2 Sat by Pulse Oximetry [ Bilateral Throughout] 04/29/21 04/29/21 04/29/21 10:40 10:42 10:47 Temperature Pulse Rate 79 83 107 H Respiratory Rate Blood Pressure 113/56 Blood Pressure [Right] O2 Sat by Pulse 93 94 Oximetry O2 Sat by Pulse Oximetry [ Bilateral Throughout] 04/29/21 04/29/21 04/29/21 10:52 10:53 10:56 Temperature Pulse Rate 83 99 H 90 Respiratory Rate Blood Pressure 132/73 Blood Pressure [Right] O2 Sat by Pulse 95 94 Oximetry O2 Sat by Pulse Oximetry [ Bilateral Throughout] 04/29/21 04/29/21 04/29/21 10:57 11:02 11:03 Temperature Pulse Rate 92 H 88 93 H Respiratory Rate Blood Pressure 132/71 Blood Pressure [Right] O2 Sat by Pulse 96 96 94 Oximetry O2 Sat by Pulse Oximetry [ Bilateral Throughout] 04/29/21 04/29/21 04/29/21 11:05 11:06 11:07 Temperature 98.3 F Pulse Rate 86 92 H Respiratory 18 Rate Blood Pressure 141/73 Blood Pressure [Right] O2 Sat by Pulse 96 Oximetry O2 Sat by Pulse Oximetry [ Bilateral Throughout] 04/29/21 04/29/21 04/29/21 11:08 11:10 11:12 Temperature Pulse Rate 80 80 86 Respiratory Rate Blood Pressure 131/60 119/56 120/56 Blood Pressure [Right] O2 Sat by Pulse 93 Oximetry O2 Sat by Pulse Oximetry [ Bilateral Throughout] 04/29/21 04/29/21 04/29/21 11:14 11:16 11:17 Temperature Pulse Rate 90 76 82 Respiratory Rate Blood Pressure 121/67 121/61 Blood Pressure [Right] O2 Sat by Pulse 95 Oximetry O2 Sat by Pulse Oximetry [ Bilateral Throughout] 04/29/21 04/29/21 04/29/21 11:18 11:20 11:22 Temperature Pulse Rate 81 80 78 Respiratory Rate Blood Pressure 111/58 103/59 106/58 Blood Pressure [Right] O2 Sat by Pulse 94 94 Oximetry O2 Sat by Pulse Oximetry [ Bilateral Throughout] 04/29/21 04/29/21 04/29/21 11:24 11:26 11:27 Temperature Pulse Rate 81 79 82 Respiratory Rate Blood Pressure 107/55 104/55 Blood Pressure [Right] O2 Sat by Pulse 94 93 Oximetry O2 Sat by Pulse Oximetry [ Bilateral Throughout] 04/29/21 04/29/21 04/29/21 11:28 11:32 11:37 Temperature Pulse Rate 81 84 85 Respiratory Rate Blood Pressure 105/57 Blood Pressure [Right] O2 Sat by Pulse 94 94 Oximetry O2 Sat by Pulse Oximetry [ Bilateral Throughout] 04/29/21 04/29/21 04/29/21 11:40 11:42 11:46 Temperature Pulse Rate 85 79 88 Respiratory Rate Blood Pressure 102/51 Blood Pressure [Right] O2 Sat by Pulse 94 94 Oximetry O2 Sat by Pulse Oximetry [ Bilateral Throughout] 04/29/21 04/29/21 04/29/21 11:47 11:50 11:52 Temperature Pulse Rate 88 78 84 Respiratory Rate Blood Pressure 103/57 Blood Pressure [Right] O2 Sat by Pulse 93 94 Oximetry O2 Sat by Pulse Oximetry [ Bilateral Throughout] 04/29/21 04/29/21 04/29/21 11:57 11:59 12:00 Temperature Pulse Rate 80 83 Respiratory Rate Blood Pressure 93/49 Blood Pressure [Right] O2 Sat by Pulse 93 88 Oximetry O2 Sat by Pulse Oximetry [ Bilateral Throughout] 04/29/21 04/29/21 04/29/21 12:02 12:07 12:09 Temperature Pulse Rate 75 77 96 H Respiratory Rate Blood Pressure Blood Pressure [Right] O2 Sat by Pulse 91 92 94 Oximetry O2 Sat by Pulse Oximetry [ Bilateral Throughout] 04/29/21 04/29/21 04/29/21 12:10 12:11 12:12 Temperature Pulse Rate 75 80 79 Respiratory Rate Blood Pressure 118/61 109/57 Blood Pressure [Right] O2 Sat by Pulse 97 Oximetry O2 Sat by Pulse Oximetry [ Bilateral Throughout] 04/29/21 04/29/21 04/29/21 12:17 12:19 12:20 Temperature Pulse Rate 81 76 89 Respiratory Rate Blood Pressure 99/55 Blood Pressure [Right] O2 Sat by Pulse 96 94 Oximetry O2 Sat by Pulse Oximetry [ Bilateral Throughout] 04/29/21 04/29/21 04/29/21 12:22 12:27 12:29 Temperature Pulse Rate 88 72 83 Respiratory Rate Blood Pressure 100/52 Blood Pressure [Right] O2 Sat by Pulse 96 92 Oximetry O2 Sat by Pulse Oximetry [ Bilateral Throughout] 04/29/21 04/29/21 04/29/21 12:52 12:57 13:00 Temperature Pulse Rate 82 84 71 Respiratory Rate Blood Pressure 109/60 Blood Pressure [Right] O2 Sat by Pulse 97 98 Oximetry O2 Sat by Pulse Oximetry [ Bilateral Throughout] 04/29/21 04/29/21 04/29/21 13:02 13:07 13:10 Temperature Pulse Rate 70 85 81 Respiratory Rate Blood Pressure 104/53 Blood Pressure [Right] O2 Sat by Pulse 98 99 Oximetry O2 Sat by Pulse Oximetry [ Bilateral Throughout] 04/29/21 04/29/21 04/29/21 13:12 13:17 13:19 Temperature Pulse Rate 79 77 83 Respiratory Rate Blood Pressure 94/52 Blood Pressure [Right] O2 Sat by Pulse 96 97 94 Oximetry O2 Sat by Pulse Oximetry [ Bilateral Throughout] 04/29/21 04/29/21 04/29/21 13:22 13:27 13:30 Temperature Pulse Rate 80 76 77 Respiratory Rate Blood Pressure 96/52 Blood Pressure [Right] O2 Sat by Pulse 95 96 Oximetry O2 Sat by Pulse Oximetry [ Bilateral Throughout] 04/29/21 04/29/21 04/29/21 13:32 13:37 13:39 Temperature Pulse Rate 73 75 76 Respiratory Rate Blood Pressure 85/63 Blood Pressure [Right] O2 Sat by Pulse 96 97 Oximetry O2 Sat by Pulse Oximetry [ Bilateral Throughout] 04/29/21 04/29/21 04/29/21 13:42 13:46 13:47 Temperature 97.4 F L Pulse Rate 77 67 Respiratory 20 Rate Blood Pressure Blood Pressure [Right] O2 Sat by Pulse 99 99 Oximetry O2 Sat by Pulse Oximetry [ Bilateral Throughout] 04/29/21 04/29/21 04/29/21 13:50 13:52 13:57 Temperature Pulse Rate 69 77 77 Respiratory Rate Blood Pressure 98/55 Blood Pressure [Right] O2 Sat by Pulse 98 99 Oximetry O2 Sat by Pulse Oximetry [ Bilateral Throughout] 04/29/21 04/29/21 04/29/21 13:59 14:02 14:07 Temperature Pulse Rate 74 71 71 Respiratory Rate Blood Pressure 101/56 Blood Pressure [Right] O2 Sat by Pulse 99 100 Oximetry O2 Sat by Pulse Oximetry [ Bilateral Throughout] 04/29/21 04/29/21 04/29/21 14:11 14:12 14:17 Temperature Pulse Rate 74 76 76 Respiratory Rate Blood Pressure 99/54 Blood Pressure [Right] O2 Sat by Pulse 99 100 Oximetry O2 Sat by Pulse Oximetry [ Bilateral Throughout] 04/29/21 04/29/21 04/29/21 14:20 14:22 14:27 Temperature Pulse Rate 76 80 85 Respiratory Rate Blood Pressure 109/55 Blood Pressure [Right] O2 Sat by Pulse 99 100 Oximetry O2 Sat by Pulse Oximetry [ Bilateral Throughout] 04/29/21 04/29/21 04/29/21 14:29 14:32 14:37 Temperature Pulse Rate 76 72 74 Respiratory Rate Blood Pressure 128/56 Blood Pressure [Right] O2 Sat by Pulse 100 100 Oximetry O2 Sat by Pulse Oximetry [ Bilateral Throughout] 04/29/21 04/29/21 04/29/21 14:42 14:44 14:47 Temperature Pulse Rate 77 77 66 Respiratory Rate Blood Pressure 114/56 Blood Pressure [Right] O2 Sat by Pulse 100 100 Oximetry O2 Sat by Pulse Oximetry [ Bilateral Throughout] 04/29/21 04/29/21 04/29/21 14:52 14:57 15:00 Temperature Pulse Rate 71 67 73 Respiratory Rate Blood Pressure 110/53 Blood Pressure [Right] O2 Sat by Pulse 100 100 93 Oximetry O2 Sat by Pulse Oximetry [ Bilateral Throughout] 04/29/21 04/29/21 04/29/21 15:02 15:07 15:12 Temperature Pulse Rate 68 73 64 Respiratory Rate Blood Pressure Blood Pressure [Right] O2 Sat by Pulse 100 100 100 Oximetry O2 Sat by Pulse Oximetry [ Bilateral Throughout] 04/29/21 04/29/21 04/29/21 15:14 15:17 15:22 Temperature Pulse Rate 70 73 62 Respiratory Rate Blood Pressure 115/58 Blood Pressure [Right] O2 Sat by Pulse 100 100 Oximetry O2 Sat by Pulse Oximetry [ Bilateral Throughout] 04/29/21 04/29/21 04/29/21 15:27 15:30 15:32 Temperature Pulse Rate 65 74 66 Respiratory Rate Blood Pressure 109/65 Blood Pressure [Right] O2 Sat by Pulse 100 100 Oximetry O2 Sat by Pulse Oximetry [ Bilateral Throughout] 04/29/21 04/29/21 04/29/21 15:37 15:42 15:45 Temperature Pulse Rate 65 63 61 Respiratory Rate Blood Pressure 117/69 Blood Pressure [Right] O2 Sat by Pulse 100 100 Oximetry O2 Sat by Pulse Oximetry [ Bilateral Throughout] 04/29/21 04/29/21 04/29/21 15:47 15:52 15:57 Temperature Pulse Rate 83 94 H 79 Respiratory Rate Blood Pressure Blood Pressure [Right] O2 Sat by Pulse 100 100 99 Oximetry O2 Sat by Pulse Oximetry [ Bilateral Throughout] 04/29/21 04/29/21 04/29/21 15:59 16:02 16:04 Temperature 97.6 F Pulse Rate 82 88 Respiratory 16 Rate Blood Pressure 122/76 Blood Pressure [Right] O2 Sat by Pulse 99 Oximetry O2 Sat by Pulse Oximetry [ Bilateral Throughout] 04/29/21 04/29/21 04/29/21 16:07 16:12 16:14 Temperature Pulse Rate 89 72 78 Respiratory Rate Blood Pressure 106/56 Blood Pressure [Right] O2 Sat by Pulse 99 100 Oximetry O2 Sat by Pulse Oximetry [ Bilateral Throughout] 04/29/21 04/29/21 04/29/21 16:17 16:22 16:27 Temperature Pulse Rate 72 69 70 Respiratory Rate Blood Pressure Blood Pressure [Right] O2 Sat by Pulse 99 99 99 Oximetry O2 Sat by Pulse Oximetry [ Bilateral Throughout] 04/29/21 04/29/21 04/29/21 16:30 16:32 16:37 Temperature Pulse Rate 73 75 71 Respiratory Rate Blood Pressure 116/60 Blood Pressure [Right] O2 Sat by Pulse 98 99 Oximetry O2 Sat by Pulse Oximetry [ Bilateral Throughout] 04/29/21 04/29/21 04/29/21 16:42 16:44 16:47 Temperature Pulse Rate 83 64 79 Respiratory Rate Blood Pressure 125/69 Blood Pressure [Right] O2 Sat by Pulse 98 100 Oximetry O2 Sat by Pulse Oximetry [ Bilateral Throughout] 04/29/21 04/29/21 04/29/21 16:52 16:57 17:01 Temperature Pulse Rate 87 64 102 H Respiratory Rate Blood Pressure Blood Pressure [Right] O2 Sat by Pulse 98 100 89 Oximetry O2 Sat by Pulse Oximetry [ Bilateral Throughout] 04/29/21 04/29/21 04/29/21 17:02 17:07 17:12 Temperature Pulse Rate 75 79 72 Respiratory Rate Blood Pressure Blood Pressure [Right] O2 Sat by Pulse 96 95 97 Oximetry O2 Sat by Pulse Oximetry [ Bilateral Throughout] 04/29/21 04/29/21 04/29/21 17:14 17:17 17:22 Temperature Pulse Rate 70 72 76 Respiratory Rate Blood Pressure 124/73 Blood Pressure [Right] O2 Sat by Pulse 94 96 97 Oximetry O2 Sat by Pulse Oximetry [ Bilateral Throughout] 04/29/21 04/29/21 04/29/21 17:23 17:27 17:28 Temperature Pulse Rate 81 84 77 Respiratory Rate Blood Pressure Blood Pressure [Right] O2 Sat by Pulse 94 96 94 Oximetry O2 Sat by Pulse Oximetry [ Bilateral Throughout] 04/29/21 04/29/21 04/29/21 17:30 17:32 17:37 Temperature Pulse Rate 75 75 96 H Respiratory Rate Blood Pressure 119/76 Blood Pressure [Right] O2 Sat by Pulse 97 97 Oximetry O2 Sat by Pulse Oximetry [ Bilateral Throughout] 04/29/21 17:42 Temperature Pulse Rate 91 H Respiratory Rate Blood Pressure Blood Pressure [Right] O2 Sat by Pulse 96 Oximetry O2 Sat by Pulse Oximetry [ Bilateral Throughout] - Labs CBC & Chem 7: 04/29/21 08:00 Medications & Allergies - Medications Allergies/Adverse Reactions: Allergies No Known Allergies Allergy (Verified 05/22/15 00:25) Home Medications: Home Medications Medication Instructions Recorded Confirmed Last Taken Type One Daily Tablet 1 tab PO DAILY 04/23/21 04/29/21 04/28/21 13:00 History Valtrex 1,000 mg PO DAILY 04/23/21 04/29/21 04/28/21 13:00 History Active Medications: Generic Name Dose Route Start Last Admin Trade Name Cindy PRN Reason Stop Dose Admin Acetaminophen 650 mg 04/29/21 07:00 Acetaminophen 325 Mg Tab PO Q4H PRN Pain, Mild (1-3) Carboprost Tromethamine 250 mcg 04/29/21 06:57 Carboprost Tromethamine 250 Mcg/1 Ml Inj IM 04/30/21 06:56 ONCE PRN Uterine Bleeding Ephedrine Sulfate 10 mg 04/29/21 11:30 04/29/21 12:08 Ephedrine Sulfate 50 Mg/1 Ml Inj IV 10 mg Q2M PRN Administration Hypotension Fentanyl 100 mcg 04/29/21 07:00 04/29/21 09:59 Fentanyl 100 Mcg/2 Ml Inj IV 100 mcg Q2H PRN Administration Pain,Severe (7-10) LABOR PAIN Oxytocin/Sodium Chloride 30 units in 500 mls @ 2 mls/hr 04/29/21 07:00 04/29/21 16:00 Pitocin/Ns 30 Unit/500ml IV 14 ml/hr TITR ANNEMARIE 14 mls/hr Titration Protocol Lactated Ringer's 1,000 mls @ 125 mls/hr 04/29/21 07:00 04/29/21 11:10 Lactated Ringers IV 125 mls/hr DIRECT ANNEMARIE Administration Oxytocin/Sodium Chloride 30 units in 500 mls @ 40 mls/hr 04/29/21 07:00 Pitocin/Ns 30 Unit/500ml IV TITR ANNEMARIE Protocol Fentanyl/Bupivacaine/Sodium Chlor 200 mcg in 100 mls @ 12 mls/hr 04/29/21 12:00 04/29/21 11:38 Fentanyl-Bupiv 2 Mcg/Ml-0.125% EPIDURAL 12 mls/hr TITR ANNEMARIE Administration Protocol Ampicillin Sodium 1 gm in 50 mls @ 100 mls/hr 04/29/21 17:00 04/29/21 17:05 Ampicillin/Ns 1 Gm/50 Ml IV 100 mls/hr Q4H ANNEMARIE Administration Protocol Loperamide HCl 2 mg 04/29/21 06:57 Loperamide 2 Mg Cap PO 04/30/21 06:56 ONCE PRN give with Hemabate Methylergonovine Maleate 0.2 mg 04/29/21 06:57 Methylergonovine Maleate 0.2 Mg/Ml Vial IM 04/30/21 06:56 ONCE PRN Uterine Bleeding Mineral Oil 30 ml 04/29/21 22:00 Mineral Oil 30 Ml Oral Liqd PO QHS PRN Constipation Misoprostol 800 mcg 04/29/21 06:57 Misoprostol 200 Mcg Tab RI 04/30/21 06:56 ONCE PRN Uterine Bleeding Nalbuphine HCl 10 mg 04/29/21 07:00 Nalbuphine 10 Mg/1 Ml Inj IV Q2H PRN Pain, Moderate (4-6) Naloxone HCl 0.2 mg 04/29/21 11:30 Naloxone 2 Mg/2 Ml Inj IV Q5M PRN Respiratory sedation Oxytocin 10 unit 04/29/21 06:57 Oxytocin 10 Unit/1 Ml Inj IM 04/30/21 06:56 ONCE PRN Uterine Bleeding Terbutaline Sulfate 0.25 mg 04/29/21 07:00 Terbutaline 1 Mg/1 Ml Inj SUB-Q 04/30/21 06:59 ONCE PRN Hyperstimulation/Hypertonicity Valacyclovir HCl 1,000 mg 04/29/21 10:00 04/29/21 08:15 Valacyclovir 500 Mg Tab PO 1,000 mg QDAY ANNEMARIE Administration
[2021-04-29] MEDS ORDERED: ceFAZolin/Water 2 GM/20 ML 2 GM/20 ML SYRINGE IV NR (19:00)
[2021-04-29] MEDS ORDERED: METOCLOPRAMIDE 10 MG/2 ML INJ IV ONE (19:00)
[2021-04-29] MEDS ORDERED: BICITRA ORAL LIQD 30ML PO ONE (19:00)
[2021-04-29] MEDS ORDERED: FAMOTIDINE 20 MG/2 ML INJ IV ONE (19:00)
[2021-04-29] MEDS ORDERED: LIDOCAINE MPF (2%) 20 MG/1 ML VIAL 5 ML ONE ×2 (19:13→21:30)
--- NOTE | 2021-04-29 20:23 | Anesthesia Day of Surgery ---
Anesthesia Day of Surgery - Day of Surgery Patient Examined: Yes Patient H&P Reviewed: Yes Patient is NPO: Yes Beta Blockers: No Cardiac Clearance: No Pulmonary Clearance: No Bubba's Test: Negative
[2021-04-29] MEDS ORDERED: ONDANSETRON 4 MG/2 ML INJ ONE ×2 (20:45→20:59)
[2021-04-29] MEDS ORDERED: KETOROLAC 30 MG/1 ML INJ ONE (20:59)
[2021-04-29] MEDS ORDERED: SODIUM CHLORIDE 0.9% IRR 1,500 ML BOTTLE IR ONE (21:03)
[2021-04-29] MEDS ORDERED: WATER FOR IRRIG STERILE 1,500 ML BOTTLE IR ONE (21:03)
[2021-04-29] MEDS ORDERED: ceFAZolin/STERILE WATER 2 GM/20 ML SYRINGE IV ONE (21:03)
[2021-04-29] MEDS ORDERED: ONDANSETRON 4 MG/2 ML INJ IV PRN (22:00)
[2021-04-29] MEDS ORDERED: WITCH HAZEL/ GLYCERIN PAD TP PRN (22:00)
[2021-04-29] MEDS ORDERED: NALOXONE 0.4 MG/1 ML INJ IV PRN (22:00)
[2021-04-29] MEDS ORDERED: MINERAL OIL 30 ML ORAL LIQD PO PRN (22:00)
[2021-04-29] MEDS ORDERED: LANOLIN/ZINC/DIMETHICONE (LANSINOH) 7 GM TP PRN (22:00)
[2021-04-29] MEDS ORDERED: BUPIVACAINE/PF (0.25%) 2.5 MG/ML 30 ML VIAL INFILTRATI ONE ×2 (22:04)
[2021-04-29] MEDS ORDERED: dexAMETHasone 20 MG/5 ML VIAL ONE (22:04)
--- NOTE | 2021-04-29 22:13 | Procedure Note ---
Date of procedure: 04/29/21 Pre-op diagnosis: lga fetus, failure to descend, Post-op diagnosis: other (failure to descend, near term .) Procedure: This is Dr. Harvey dictating on proper report on the patient preoperative diagnosis large for gestational age fetus Postoperative diagnosis failure to descend, near term . Time of surgery was 44 minutes Findings liveborn male weight 7 pounds 10 ounces with Apgars 8 and 9 Anesthesia epidural. Estimated blood loss 410 cc. Complications none procedure patient was taken operatory after adequate epidural anesthesia was established she had an indwelling Bush catheter. We created a Pfannenstiel incision and entered the abdominal cavity anatomically subcutaneous bleeders were bovied. This uterine peritoneum was opened transversely with Metzenbaums bladder was bluntly and sharply dissected off the lower uterine segment. A low transverse incision made in lower uterine segment with a scalpel we had to extend our incision with scissors laterally on the left side to deliver the baby. Once the baby was delivered oropharynx suction cord was doubly clamped and baby passed off the table to the nurse in attendance. The placenta was then delivered manually uterus Abdominal uterine incision was repaired in 2 layers first layer within the myometrium using running 0 0 chromic secondary superficial IV running 0 chromic. Tubes and ovaries appeared to be normal vesicouterine peritoneum was repaired running 2-0 chromic. He was brought back into the abdominal cavity gutters were cleaned of debris membranes tissue and blood all instruments removed from abdominal care instrument count needle lap and sponge count was correct anterior abdominal peritoneum was repaired using running 2-0 chromic fascia. Running locking 0 Vicryl subcutaneous is repaired running 2-0 chromic skin was repaired running subcuticular 4-0 Vicryl on a Ricci needle and drained with Dermabond patient tolerated procedure well she was then returned to the room in stable condition end of operative note on this patient. Anesthesia: epidural Surgeon: AYSHA HARVEY Estimated blood loss: other (1500 ccs) IV fluids: 600 Urine output: 50 Pathology: none Specimen disposition: discarded Condition: stable Disposition: PACU
[2021-04-30] MEDS: MORPHINE 4 MG/1 ML INJ IV PRN ×4 (00:36→12:00)
[2021-04-30] MEDS: LACTATED RINGERS 1,000 ML IV SCH (00:42)
[2021-04-30] MEDS: oxyCODONE /ACETAMINOPHEN 5-325MG TAB PO PRN ×4 (08:44→22:12)
[2021-04-30] MEDS: SIMETHICONE 80 MG CHEW TAB PO PRN (08:48)
[2021-04-30] MEDS: IBUPROFEN 600 MG TAB PO PRN ×2 (10:05→18:07)
[2021-04-30] MEDS: valACYclovir 500 MG TAB PO SCH (10:05)
--- NOTE | 2021-04-30 11:05 | Progress Note ---
Assessment and Plan POD # 1 A: S/P LTCS No flatus yet P: Continue routine pp care Awaiting H&H results Encourage ambulation D/C home with 24-48h if stable Subjective - Subjective Date of service: 04/30/21 Principal diagnosis: S/P LTCS Patient reports: appetite normal, voiding normally, pain well controlled, ambulating normally : doing well, bottle feeding Objective - Vital Signs Latest vital signs: Vital Signs Temp Pulse Resp BP BP BP Pulse Ox 04/30/21 08:37 98.0 F 80 16 110/62 98 04/30/21 08:00 04/30/21 04:14 97.0 F L 76 18 109/63 96 04/30/21 00:00 98.0 F 86 18 108/67 108/67 95 04/29/21 23:45 04/29/21 23:10 82 19 106/62 96 04/29/21 22:55 97.7 F 84 18 93/58 94 04/29/21 22:40 84 21 107/65 94 04/29/21 22:25 80 17 113/70 94 04/29/21 22:20 79 20 115/68 93 04/29/21 22:15 83 19 110/69 99 04/29/21 22:10 98.2 F 99 H 19 122/61 93 04/29/21 20:07 101 H 99 04/29/21 20:02 103 H 97 04/29/21 19:59 97 H 94 04/29/21 19:57 88 94 04/29/21 19:54 102 H 94 04/29/21 19:52 100 H 97 04/29/21 19:47 98 H 96 04/29/21 19:45 86 117/60 91 04/29/21 19:42 93 H 96 04/29/21 19:37 87 97 04/29/21 19:32 88 97 04/29/21 19:29 97 H 127/68 93 04/29/21 19:27 84 97 04/29/21 19:22 99 H 98 04/29/21 19:19 98.9 F 17 04/29/21 19:17 95 H 98 04/29/21 19:15 04/29/21 19:14 96 H 129/76 04/29/21 19:12 90 97 04/29/21 19:07 86 98 04/29/21 19:02 92 H 97 04/29/21 19:00 103 H 139/83 04/29/21 18:59 100 H 93 04/29/21 18:57 108 H 97 04/29/21 18:52 103 H 93 04/29/21 18:50 92 H 94 04/29/21 18:47 96 H 94 04/29/21 18:44 99 H 132/71 89 04/29/21 18:42 96 H 94 04/29/21 18:37 92 H 94 04/29/21 18:32 96 H 94 04/29/21 18:30 82 125/74 04/29/21 18:27 89 95 04/29/21 18:26 80 94 04/29/21 18:22 96 H 94 04/29/21 18:18 92 H 94 04/29/21 18:17 81 95 04/29/21 18:15 81 126/78 04/29/21 18:12 91 H 94 04/29/21 18:07 88 96 04/29/21 18:02 92 H 96 04/29/21 17:59 89 124/70 91 04/29/21 17:57 79 96 04/29/21 17:52 82 96 04/29/21 17:47 88 96 04/29/21 17:45 77 132/77 04/29/21 17:42 91 H 96 04/29/21 17:37 96 H 97 04/29/21 17:32 75 97 04/29/21 17:30 75 119/76 04/29/21 17:28 77 94 04/29/21 17:27 84 96 04/29/21 17:23 81 94 04/29/21 17:22 76 97 04/29/21 17:17 72 96 04/29/21 17:14 70 124/73 94 04/29/21 17:12 72 97 04/29/21 17:07 79 95 04/29/21 17:02 75 96 04/29/21 17:01 102 H 89 04/29/21 16:57 64 100 04/29/21 16:52 87 98 04/29/21 16:47 79 100 04/29/21 16:44 64 125/69 04/29/21 16:42 83 98 04/29/21 16:37 71 99 04/29/21 16:32 75 98 04/29/21 16:30 73 116/60 04/29/21 16:27 70 99 04/29/21 16:22 69 99 04/29/21 16:17 72 99 04/29/21 16:14 78 106/56 04/29/21 16:12 72 100 04/29/21 16:07 89 99 04/29/21 16:04 97.6 F 16 04/29/21 16:02 88 99 04/29/21 15:59 82 122/76 04/29/21 15:57 79 99 04/29/21 15:52 94 H 100 04/29/21 15:47 83 100 04/29/21 15:45 61 117/69 04/29/21 15:42 63 100 04/29/21 15:37 65 100 04/29/21 15:32 66 100 04/29/21 15:30 74 109/65 04/29/21 15:27 65 100 04/29/21 15:22 62 100 04/29/21 15:17 73 100 04/29/21 15:14 70 115/58 04/29/21 15:12 64 100 04/29/21 15:07 73 100 04/29/21 15:02 68 100 04/29/21 15:00 73 110/53 93 04/29/21 14:57 67 100 04/29/21 14:52 71 100 04/29/21 14:47 66 100 04/29/21 14:44 77 114/56 04/29/21 14:42 77 100 04/29/21 14:37 74 100 04/29/21 14:32 72 100 04/29/21 14:29 76 128/56 04/29/21 14:27 85 100 04/29/21 14:22 80 99 04/29/21 14:20 76 109/55 04/29/21 14:17 76 100 04/29/21 14:12 76 99 04/29/21 14:11 74 99/54 04/29/21 14:07 71 100 04/29/21 14:02 71 99 04/29/21 13:59 74 101/56 04/29/21 13:57 77 99 04/29/21 13:52 77 98 04/29/21 13:50 69 98/55 04/29/21 13:47 67 99 04/29/21 13:46 97.4 F L 20 04/29/21 13:42 77 99 04/29/21 13:39 76 85/63 04/29/21 13:37 75 97 04/29/21 13:32 73 96 04/29/21 13:30 77 96/52 04/29/21 13:27 76 96 04/29/21 13:22 80 95 04/29/21 13:19 83 94/52 94 04/29/21 13:17 77 97 04/29/21 13:12 79 96 04/29/21 13:10 81 104/53 04/29/21 13:07 85 99 04/29/21 13:02 70 98 04/29/21 13:00 71 109/60 04/29/21 12:57 84 98 04/29/21 12:52 82 97 04/29/21 12:29 83 100/52 04/29/21 12:27 72 92 04/29/21 12:22 88 96 04/29/21 12:20 89 94 04/29/21 12:19 76 99/55 04/29/21 12:17 81 96 04/29/21 12:12 79 97 04/29/21 12:11 80 109/57 04/29/21 12:10 75 118/61 04/29/21 12:09 96 H 94 04/29/21 12:07 77 92 04/29/21 12:02 75 91 04/29/21 12:00 83 93/49 04/29/21 11:59 88 04/29/21 11:57 80 93 04/29/21 11:52 84 94 04/29/21 11:50 78 103/57 04/29/21 11:47 88 93 04/29/21 11:46 88 94 04/29/21 11:42 79 94 04/29/21 11:40 85 102/51 04/29/21 11:37 85 94 04/29/21 11:32 84 94 04/29/21 11:28 81 105/57 04/29/21 11:27 82 93 04/29/21 11:26 79 104/55 94 04/29/21 11:24 81 107/55 04/29/21 11:22 78 106/58 94 04/29/21 11:20 80 103/59 94 04/29/21 11:18 81 111/58 04/29/21 11:17 82 95 04/29/21 11:16 76 121/61 04/29/21 11:14 90 121/67 04/29/21 11:12 86 120/56 93 04/29/21 11:10 80 119/56 04/29/21 11:08 80 131/60 04/29/21 11:07 92 H 96 04/29/21 11:06 86 141/73 04/29/21 11:05 98.3 F 18 04/29/21 11:03 93 H 132/71 94 04/29/21 11:02 88 96 Pulse Ox 04/30/21 08:37 04/30/21 08:00 98 04/30/21 04:14 04/30/21 00:00 04/29/21 23:45 95 04/29/21 23:10 04/29/21 22:55 04/29/21 22:40 04/29/21 22:25 04/29/21 22:20 04/29/21 22:15 04/29/21 22:10 04/29/21 20:07 04/29/21 20:02 04/29/21 19:59 04/29/21 19:57 04/29/21 19:54 04/29/21 19:52 04/29/21 19:47 04/29/21 19:45 04/29/21 19:42 04/29/21 19:37 04/29/21 19:32 04/29/21 19:29 04/29/21 19:27 04/29/21 19:22 04/29/21 19:19 04/29/21 19:17 04/29/21 19:15 97 04/29/21 19:14 04/29/21 19:12 04/29/21 19:07 04/29/21 19:02 04/29/21 19:00 04/29/21 18:59 04/29/21 18:57 04/29/21 18:52 04/29/21 18:50 04/29/21 18:47 04/29/21 18:44 04/29/21 18:42 04/29/21 18:37 04/29/21 18:32 08/03/21 18:30 04/29/21 18:27 04/29/21 18:26 04/29/21 18:22 04/29/21 18:18 04/29/21 18:17 04/29/21 18:15 04/29/21 18:12 04/29/21 18:07 04/29/21 18:02 04/29/21 17:59 04/29/21 17:57 04/29/21 17:52 04/29/21 17:47 04/29/21 17:45 04/29/21 17:42 04/29/21 17:37 04/29/21 17:32 04/29/21 17:30 04/29/21 17:28 04/29/21 17:27 04/29/21 17:23 04/29/21 17:22 04/29/21 17:17 04/29/21 17:14 04/29/21 17:12 04/29/21 17:07 04/29/21 17:02 04/29/21 17:01 04/29/21 16:57 04/29/21 16:52 04/29/21 16:47 04/29/21 16:44 04/29/21 16:42 04/29/21 16:37 04/29/21 16:32 04/29/21 16:30 04/29/21 16:27 04/29/21 16:22 04/29/21 16:17 04/29/21 16:14 04/29/21 16:12 04/29/21 16:07 04/29/21 16:04 04/29/21 16:02 04/29/21 15:59 04/29/21 15:57 04/29/21 15:52 04/29/21 15:47 04/29/21 15:45 04/29/21 15:42 04/29/21 15:37 04/29/21 15:32 04/29/21 15:30 04/29/21 15:27 04/29/21 15:22 04/29/21 15:17 04/29/21 15:14 04/29/21 15:12 04/29/21 15:07 04/29/21 15:02 04/29/21 15:00 04/29/21 14:57 04/29/21 14:52 04/29/21 14:47 04/29/21 14:44 04/29/21 14:42 04/29/21 14:37 04/29/21 14:32 04/29/21 14:29 04/29/21 14:27 04/29/21 14:22 04/29/21 14:20 04/29/21 14:17 04/29/21 14:12 04/29/21 14:11 04/29/21 14:07 04/29/21 14:02 04/29/21 13:59 04/29/21 13:57 04/29/21 13:52 04/29/21 13:50 04/29/21 13:47 04/29/21 13:46 04/29/21 13:42 04/29/21 13:39 04/29/21 13:37 04/29/21 13:32 04/29/21 13:30 04/29/21 13:27 04/29/21 13:22 04/29/21 13:19 04/29/21 13:17 04/29/21 13:12 04/29/21 13:10 04/29/21 13:07 04/29/21 13:02 04/29/21 13:00 04/29/21 12:57 04/29/21 12:52 04/29/21 12:29 04/29/21 12:27 04/29/21 12:22 04/29/21 12:20 04/29/21 12:19 04/29/21 12:17 04/29/21 12:12 04/29/21 12:11 04/29/21 12:10 04/29/21 12:09 04/29/21 12:07 04/29/21 12:02 04/29/21 12:00 04/29/21 11:59 04/29/21 11:57 04/29/21 11:52 04/29/21 11:50 04/29/21 11:47 04/29/21 11:46 04/29/21 11:42 04/29/21 11:40 04/29/21 11:37 04/29/21 11:32 04/29/21 11:28 04/29/21 11:27 04/29/21 11:26 04/29/21 11:24 04/29/21 11:22 04/29/21 11:20 04/29/21 11:18 04/29/21 11:17 04/29/21 11:16 04/29/21 11:14 04/29/21 11:12 04/29/21 11:10 04/29/21 11:08 04/29/21 11:07 04/29/21 11:06 04/29/21 11:05 04/29/21 11:03 04/29/21 11:02 Intake and Output 04/29/21 04/30/21 04/30/21 22:59 06:59 14:59 Intake Total 1627 380 240 Output Total 1460 573 4399 Balance -273 220 -760 Intake: IV 1627 140 Lactated Ringers 1,000 ml 1000 @ 125 mls/hr IV DIRECT ANNEMARIE Rx#:[id number] Left Hand 40 PITOCin/NS 30 UNIT/500ML 27 30 units In 500 ml @ 2 mls/hr IV TITR ANNEMARIE Rx#: [id number] Oral 240 240 Output: Urine 4738 237 5892 Indwelling Catheter 2886 879 0476 Uretheral (Bush) 50 Other: Total, Intake Amount 240 240 Total, Output Amount 002 262 8288 Estimated Blood Loss 1,410 - Exam Breasts: Present: normal Abdomen: Present: normal appearance, soft, normal bowel sounds Vulva: both: normal Uterus: Present: normal, firm, fundal height below umbilicus Extremities: Present: normal Incision: Present: normal, dry, intact
[2021-04-30 18:51] LABS: Hematocrit 26.7 % (30.3-42.9); Hemoglobin 8.9 gm/dl (10.1-14.3)
[2021-04-30] MEDS: MAGNESIUM HYDROXIDE (MOM) ORAL LIQD UDC PO PRN (22:12)
[2021-04-30] MEDS ORDERED: LACTATED RINGERS 1,000 ML IV ONE (22:34)
[2021-05-01] MEDS: oxyCODONE /ACETAMINOPHEN 5-325MG TAB PO PRN (04:39)
[2021-05-01] MEDS: MAGNESIUM HYDROXIDE (MOM) ORAL LIQD UDC PO PRN (04:39)
[2021-05-01] MEDS: SIMETHICONE 80 MG CHEW TAB PO PRN (04:40)
[2021-05-01 05:19] LABS: Basophils # (Auto) 0.1 K/mm3 (0.0-0.1); Basophils % (Auto) 0.5 % (0.0-1.8); Eosinophils # (Auto) 0.1 K/mm3 (0.0-0.4); Eosinophils % (Auto) 1.1 % (0.0-4.3); Hematocrit 26.4 % (30.3-42.9); Lymphocytes % (Auto) 17.2 % (13.4-35.0); Mean Corpuscular HGB Conc 34 % (30-34); Mean Corpuscular Volume 87 fl (79-97); Monocytes # (Auto) 1.3 K/mm3 (0.0-0.8); Platelet Count 168 K/mm3 (140-440); Red Blood Count 3.05 M/mm3 (3.65-5.03); Red Cell Distribution Width 15.1 % (13.2-15.2)
[2021-05-01] MEDS: valACYclovir 500 MG TAB PO SCH ×2 (11:00→11:30)
--- NOTE | 2021-05-01 11:22 | Progress Note ---
Assessment and Plan POD # 2 A: S/P Primary LTCS Asymptomatic anemia P: Continue routine pp orders Encouage ambulation Continue Fe as prescribed and encourage foods high in Fe D/C home tomm if stable Subjective - Subjective Date of service: 05/01/21 Principal diagnosis: S/P LTCS Patient reports: appetite normal, voiding normally, pain well controlled, flatus, ambulating normally, other (denies dizziness) : doing well, nursing well Objective - Vital Signs Latest vital signs: Vital Signs Temp Pulse Resp BP Pulse Ox Pulse Ox 05/01/21 09:30 98 05/01/21 08:11 97.9 F 81 18 109/71 100 04/30/21 22:21 98.1 F 80 18 123/71 98 04/30/21 20:45 98.0 F 74 18 109/68 97 04/30/21 20:30 98 04/30/21 16:38 97.9 F 72 18 107/60 96 04/30/21 11:55 98.1 F 71 17 102/60 97 Intake and Output 04/30/21 05/01/21 05/01/21 22:59 06:59 14:59 Intake Total 680 520 120 Output Total 600 Balance 80 520 120 Intake: Oral 560 520 120 Intake, Free Water 120 Output: Urine 600 Void 600 Other: Total, Intake Amount 200 200 120 Total, Output Amount 600 # Voids Void 1 1 1 - Exam Breasts: Present: normal Abdomen: Present: normal appearance, soft, normal bowel sounds Vulva: both: normal Uterus: Present: normal, firm, fundal height below umbilicus Extremities: Present: normal Incision: Present: normal, dry, intact - Labs Labs: Abnormal lab results 04/30/21 05/01/21 Range/Units 18:24 04:20 WBC 11.4 H (4.5-11.0) K/mm3 RBC 3.05 L (3.65-5.03) M/mm3 Hgb 8.9 L D 9.0 L (10.1-14.3) gm/dl Hct 26.7 L D 26.4 L (30.3-42.9) % Mcnairy % (Auto) 11.0 H (0.0-7.3) % [place]nairy # (Auto) 1.3 H (0.0-0.8) K/mm3 Seg Neutrophils % 70.2 H (40.0-70.0) % Seg Neutrophils # 8.0 H (1.8-7.7) K/mm3
[2021-05-01] MEDS: FERROUS SULFATE 325 MG TAB PO SCH ×2 (11:30→23:46)
[2021-05-01] MEDS: IBUPROFEN 600 MG TAB PO PRN ×3 (11:31→23:46)
[2021-05-02] MEDS: IBUPROFEN 600 MG TAB PO PRN (05:39)
[2021-05-02] MEDS: FERROUS SULFATE 325 MG TAB PO SCH (10:20)
[2021-05-02] MEDS: valACYclovir 500 MG TAB PO SCH (10:21)
--- NOTE | 2021-05-02 11:21 | Progress Note ---
Assessment and Plan A: /postop day 3 S/P primary LTCS. Anemia (asymptomatic). P: Discharge patient home today. Discussed with patient discharge instructions and warning signs. Advised patient to continue taking her vitamins and iron supplements at home. Advised patient re: care of incision and activity restrictions. Advised patient to avoid intercourse, lifting, housework, stair climbing, tub baths (patient may take showers). Advised patient to follow up at [facility] in 1 week. Patient voiced understanding of all instructions. Subjective - Subjective Date of service: 05/02/21 Principal diagnosis: day 3 S/P primary LTCS Interval history: Asymptomatic anemia, taking iron supplements. Patient desires discharge home today. Patient reports: appetite normal, voiding normally, pain well controlled, flatus, ambulating normally, no dizzy ambulation, no nauseated : doing well Objective - Vital Signs Latest vital signs: Vital Signs Temp Pulse Resp BP Pulse Ox Pulse Ox 05/02/21 08:06 97.9 F 75 18 110/67 98 05/02/21 06:39 18 05/02/21 05:39 18 05/02/21 01:38 98.9 F 91 H 20 111/62 97 05/02/21 00:46 18 05/01/21 23:46 18 05/01/21 20:00 100 05/01/21 16:42 98.3 F 92 H 20 110/72 100 Intake and Output 05/01/21 05/02/21 05/02/21 23:59 07:59 15:59 Intake Total 960 360 Balance 960 360 Intake: Oral 360 Intake, Free Water 600 360 Other: Total, Intake Amount 360 # Voids Void 1 1 - Exam Cardiovascular: Present: Regular rate Lungs: Present: Clear to auscultation Abdomen: Present: normal appearance, soft, normal bowel sounds. Absent: distention, tenderness, guarding, rigidity Uterus: Present: normal, firm, fundal height below umbilicus. Absent: bogginess, tenderness Extremities: Absent: tenderness Incision: Present: normal, dry, intact
--- NOTE | 2021-05-02 11:24 | Discharge Summary ---
Providers - Providers Date of Admission: 04/29/21 06:57 Date of discharge: 05/02/21 Attending physician: LATANYA MONTILLA Primary care physician: LATANYA MONTILLA Hospitalization Reason for admission: rupture of membranes Delivery: Procedure: primary low transverse Incision: normal, dry, intact Other procedures: none complications: none Discharge diagnosis: IUP at term delivered [place] baby: male Pertinent studies: Labs. Hospital course: Stable hospital course. Condition at discharge: Good Disposition: DC-01 TO HOME OR SELFCARE - Discharge Diagnoses (1) Term delivered Status: Acute (2) Anemia Status: Acute Plan - Provider Discharge Summary Activity: routine, no sex for 6 weeks, no heavy lifting 4 weeks, no strenuous exercise Diet: routine Instructions: routine Additional instructions: Continue taking your vitamins and iron supplements at home. Follow up at [facility] in 1 week. Call your doctor immediately for: * Fever > 100.5 * Heavy vaginal bleeding ( >1 pad per hour) * Severe persistent headache * Shortness of breath * Reddened, hot, painful area to leg or breast * Drainage or odor from incision. * Keep incision clean and dry at all times and follow doctor's instructions regarding bathing/showering - Follow up plan Follow up: LATANYA MONTILLA MD [Primary Care Provider] - 7 Days Forms: [facility] Discharge Summary, Discharge Signature Page
[2021-05-02 15:09] VITALS: BP 126/72
== END 2021-05-02 15:10 | disposition home or self-care (01) | DRG 765 ==
LOC: TRG 05:58 → APU 05:59 → OBSVTOIN 06:57 → TRG 06:57 → LD 07:54 → OB 04-30 00:05
PROVIDERS: ADMIT Obstetrics & Gynecology; ATTEND Obstetrics & Gynecology
PROC: 10D00Z1 Extraction of Products of Conception, Low, Open Approach (ICD-10-PCS; principal; 2021-04-29)
DX: O99.824 Streptococcus B carrier state complicating childbirth (principal); O98.52 Other viral diseases complicating childbirth; O99.02 Anemia complicating childbirth; O62.1 Secondary uterine inertia; O36.63X0 Maternal care for excessive fetal growth, third trimester, not applicable or unspecified; O99.62 Diseases of the digestive system complicating childbirth; K21.9 Gastro-esophageal reflux disease without esophagitis; B00.9 Herpesviral infection, unspecified; O42.92 Full-term premature rupture of membranes, unspecified as to length of time between rupture and onset of labor; Z20.822 Contact with and (suspected) exposure to COVID-19; Z3A.39 39 weeks gestation of pregnancy; Z37.0 Single live birth; Z79.899 Other long term (current) drug therapy
CPT/HCPCS: 36415; 59025; 85014; 85018; 85025; 85027; 86850; 86900; 86901; G0378; J0290; J0690; J1100; J1885; J2270; J2405; J2590; J2765; J3010; J7120; U0003

== ENCOUNTER 2021-07-14 07:02 | Day surgery (SDC) | payer MEDICAID ==
--- NOTE | 2021-07-14 08:12 | Anesthesia Consultation ---
Anesthesia Consult and Med Hx Date of service: 07/14/21 - Airway Anesthetic Teeth Evaluation: Good Mallampati Class: Class II Intubation Access Assessment: Good - Pulmonary Exam CTA: Yes - Cardiac Exam Cardiac Exam: RRR - Pre-Operative Health Status ASA Pre-Surgery Classification: ASA2 Proposed Anesthetic Plan: General - Pulmonary Hx Smoking: No Hx Asthma: No Hx Respiratory Symptoms: No SOB: No COPD: No Hx Pneumonia: No Hx Sleep Apnea: Yes (SNORES) - Cardiovascular System Hx Hypertension: No Hx Coronary Artery Disease: No Hx Heart Attack/AMI: No Hx Angina: No Hx Percutaneous Transluminal Coronary Angioplasty (PTCA): No Hx Cardia Arrhythmia: No Hx Pacemaker: No Hx Internal Defibrillator: No Hx Valvular Heart Disease: No Hx Heart Murmur: Yes (PATIENT STATED NO PROBLEMS) Hx Peripheral Vascular Disease: No - Central Nervous System Hx Neuromuscular Disorder: No Hx Seizures: No CVA: No Hx Back Pain: Yes (WHEN ) Hx Psychiatric Problems: No - Gastrointestinal Hx Ulcer: No Hx Gastroesophageal Reflux Disease: Yes - Endocrine Hx Renal Disease: No Hx End Stage Renal Disease: No Hx Cirrhosis: No Hx Liver Disease: No Hx Insulin Dependent Diabetes: No Hx Non-Insulin Dependent Diabetes: No Hx Thyroid Disease: No Hx Hypothyroidism: No Hx Hyperthyroidism: No - Hematic Hx Anemia: Yes Hx Sickle Cell Disease: No - Other Systems Hx Alcohol Use: No Hx Substance Use: No Hx Cancer: No Hx Obesity: Yes - Additional Comments Anesthesia Medical History Comments: hx of herpes
--- NOTE | 2021-07-14 08:12 | Anesthesia Day of Surgery ---
Anesthesia Day of Surgery - Day of Surgery Patient Examined: Yes Patient H&P Reviewed: Yes Patient is NPO: Yes
[2021-07-14] MEDS ORDERED: MIDAZOLAM 2 MG/2 ML INJ IV NR (09:00)
[2021-07-14] MEDS ORDERED: LACTATED RINGERS 1,000 ML IV SCH (09:00)
[2021-07-14 09:20] VITALS: BP 126/91
== END 2021-07-14 07:03 | disposition home or self-care (01) ==
LOC: OR 07:02
PROVIDERS: ATTEND Obstetrics & Gynecology
DX: Z30.2 Encounter for sterilization (principal); Z53.8 Procedure and treatment not carried out for other reasons; G47.30 Sleep apnea, unspecified; K21.9 Gastro-esophageal reflux disease without esophagitis; M19.90 Unspecified osteoarthritis, unspecified site; Z79.899 Other long term (current) drug therapy; Z98.890 Other specified postprocedural states
CPT/HCPCS: 81025; J7120